=== PATIENT | male | born 1945 | race Caucasian/White ===

== ENCOUNTER 2016-09-15 08:15 | Outpatient (CLI) | payer MEDICARE, BC ==
[~2016-09-15] VITALS: Ht 175.3 cm; Wt 83.6 kg
--- NOTE | ~2016-09-15 | HEMODYNAMI ---
PATIENT:GUSTABO SOMERS MEDICAL RECORD: [id number] : 45 LOCATION:[facility] ADMISSION DATE: 09/15/16 Generatedon:09/15/201611:18 Patient name: GUSTABO SOMERS Patient #: [id number] : 1945 Date of study: 09/15/2016 Page: Of Hemodynamic Procedure Report Patient Data Patient Demographics Procedure consent was obtained First Name: GUSTBAO Gender: Male Last Name: YONIS : 1945 Middle Initial: R Age: 70 year(s) Patient #: [id number] Race: SSN: [id number] Additional ID: [id number] Contact details Address: [address] [place] [address] State: [place] City: [place] Zip code: [address] Past Medical History Allergies Allergen Reaction Date Comments Reported Other allergy 12/16/2015 codeine Other allergy 05/24/2016 codeine Other allergy 05/25/2016 codeine. Other allergy 09/15/2016 codiene,statins Admission Admission Data Admission Date: 09/15/2016 Admission Time: 8:15 Admit Source: Other Insurance Payor: Private health insurance, Medicare Height (in.): 184 BSA: 2.69 (m2) Height (cm.): 467.36 BMI: 1.45 (kg/m2) Weight (lbs.): 70 Weight (kg.): 31.75 Medications upon Admission Medications Dosage Times Administered Last Remarks per Delivery Day Date and Time Clopidogrel Yes 09/15/2016 0:00 Lab Results Lab Result Date: 09/15/2016 Lab Result Time: 0:00 Biochemistry Name Units Result Min Max Creatinine mg/dl 0.6 --(*---)-- 0.6 1.3 CBC Name Units Result Min Max Hemoglobin g/dl 12.6 -*(----)-- 13.5 17.5 Procedure Procedure Types Cath Procedure Diagnostic Procedure LHC LHC w/Coronaries w/Grafts PCI Procedure SVG-BMS/IDALMIS Initial Procedure Description Procedure Date Procedure Date: 09/15/2016 Procedure Start Time: 10:48 Procedure End Time: 11:13 Procedure Staff Name Function Kj Anthony MD Performing Physician Amena Kapadia RT Scrub Diane Scherer RN Nurse Charles Solano RN Title 1 Tutor Modesto Azevedo RT Monitor Procedure Data Cath Procedure Fluoroscopy Diagnostic fluoroscopy Total fluoroscopy Time: 7.4 time: 7.4 min min Diagnostic fluoroscopy Total fluoroscopy dose: 777 dose: 777 mGy mGy Contrast Material Contrast Material Type Amount (ml) Isovue 300 145 Entry Location Entry Primary Successful Side Size Upsize Upsize Entry Closure Succes sful Closure Location (Fr) 1 (Fr) 2 (Fr) Remarks Device Remarks Femoral Right 5 Fr 6 Fr Vascade artery Short Closure System Estimated blood loss: 10 ml Diagnostic catheters Device Type Used For End Catheter Placement Cordis 5Fr Pigtail Procedure Catheter (MP) Cordis 5Fr JL 4.0 Procedure Catheter (MP) Cordis 5Fr 3DRC Catheter Procedure (MP) Cordis Infinity 5Fr JL 5 Procedure catheter Procedure Complications No complications Procedure Medications Medication Administration Route Dosage Oxygen NC 2 l/min Benadryl I.V. 50 mg Lidocaine 2% added to field 20 Heparin Flush Bag added to field 2 bags (1000units/500ml NS) 0.9% NaCl I.V. 100 ml/hr Versed I.V. 1 mg Fentanyl I.V. 50 mcg Versed I.V. 1 mg Fentanyl I.V. 50 mcg Heparin Bolus I.V. 4000 units Hemodynamics Rest BSA: 2.69 (m2) HGB: 12.6 (g/dl) O2 Consumption: Estimated: 328.51 (ml/min) O2 Co nsumption indexed: Estimated:122.12 (ml/min/m) Heart Rate: 87 (bpm) Snapshots Pre Cath Intra NCS Post Cath Vital Signs Time Heart Resp SPO2 etCO2 BD7aqnt NIBP (mmHg) Rhythm Pain Sedation Rate (ipm) (%) (mmHg) (mmHg) Status Level (bpm) 10:30:44 85 17 96 0 0 132/80(104) NSR 0 (11) 10(A) , No pain 10:34:54 80 24 96 0 0 139/81(122) NSR 0 (11) 10(A) , No pain 10:39:08 82 17 99 0 0 116/76(92) NSR 0 (11) 10(A) , No pain 10:43:16 82 24 100 0 0 114/71(86) NSR 0 (11) 10(A) , No pain 10:44:46 81 16 100 0 0 107/68(84) NSR 0 (11) 10(A) , No pain 10:48:50 81 16 99 0 0 107/72(98) NSR 0 (11) 9(A) , No pain 10:52:58 81 18 98 0 0 102/63(85) NSR 0 (11) 9(A) , No pain 10:57:03 80 21 99 0 0 110/61(90) NSR 0 (11) 9(A) , No pain 11:01:11 81 18 100 0 0 104/64(80) NSR 0 (11) 9(A) , No pain 11:05:15 81 17 100 0 0 115/65(98) NSR 0 (11) 9(A) , No pain 11:09:14 77 16 100 0 0 105/65(89) NSR 0 (11) 9(A) , No pain 11:13:18 82 11 100 0 0 114/69(82) NSR 0 (11) 9(A) , No pain Medications Time Medication Route Dose Verified Delivered Reason Notes Effectiveness by by 10:28:14 Oxygen NC 2 Kj Buffie used for l/min Gabrielle Scherer RN procedure 10:28:21 Benadryl I.V. 50 mg Kj Buffie used for Gabrielle Scherer RN procedure 10:33:24 Lidocaine 2% added 20ml Kj Underwood for local to vial Gabrielle Anthony MD anesthetic field 10:33:31 Heparin Flush added 2 Kj Kj used for Bag to bags Gabrielle Anthony MD procedure (1000units/500ml field NS) 10:33:42 0.9% NaCl I.V. 100 Kj Buffie Per physician ml/hr Gabrielle Scherer RN 10:44:07 Versed I.V. 1 mg Kj Rojasie for sedation Gabrielle Scherer RN 10:44:13 Fentanyl I.V. 50 Kj Buffie for sedation mcg Gabrielle Scherer RN 10:47:38 Versed I.V. 1 mg Kj Contreras for sedation Gabrielle Scherer RN 10:47:42 Fentanyl I.V. 50 Kj Contreras for sedation mcg Gabrielle Scherer RN 10:57:08 Heparin Bolus I.V. 4000 Kj Contreras for units Gabrielle Scherer RN anticoagulation Procedure Log Time Note 10:00:16 Charles Solano RN sent for patient. Start room use. 10:20:51 Informed consent obtained and on chart 10:21:10 Admit Source: Other 10::22 Time tracking: Regular hours 10:21:26 Plan of Care:Hemodynamics will remain stable., Cardiac rhythm will remain stable., Comfort level will be maintained., Respiratory function will remain adequate., Patient/ family verbilizes understanding of procedure., Procedure tolerated without complication., Recovers from procedure without complications.. 10:21:34 Patient received from Outpatients to CCL 2 Alert and oriented. Tansferred to table in Supine position. 10:21:35 Warm blankets applied, and meg hugger turned on for patient comfort. 10:21:35 Correct patient and procedure confirmed by team. 10:21:37 Signed procedure consent form obtained from patient. 10:28:14 Oxygen 2 l/min NC was given by Diane Scherer RN; used for procedure; 10:28:21 Benadryl 50 mg I.V. was given by Diane Scherer RN; used for procedure; 10:29:39 ECG and BP/O2 sat monitors applied to patient. 10:29:40 Vital chart was started 10:29:47 Baseline sample Acquired. 10:29:54 Rhythm: sinus rhythm 10:29:56 Full Disclosure recording started 10:31:49 H&P Date Dictated: 09/14/2016 Within 30 days and on chart., H&P Addendum completed by physician on day of procedure. (MUST COMPLETE FOR ALL OUTPATIENTS). 10:31:50 Pre-procedure instructions explained to patient. 10:31:51 Pre-op teaching completed and patient verbalized understanding. 10:31:52 Family in waiting room. 10:31:53 Patient NPO since Midnight. 10:32:15 Patient allergic to Other allergycodiene,statins 10:32:18 Is the patient allergic to Iodine/contrast media? No. 10:32:19 Is patient on blood thinner?Yes 10:32:22 ACC The patient was administered the following blood thiners within the last 24 hours: ACCPlavix 10:32:24 Patient diabetic? No. 10:32:40 Previous problem with sedation/anesthesia? No ? 10:32:41 Snore? Yes 10:32:42 Sleep apnea? No 10:32:43 Deviated septum? No 10:32:44 Opens mouth fully? Yes 10:32:45 Sticks out tongue? Yes 10:32:48 Airway obstruction? No ? 10:32:50 Dentures? Yes in tight 10:33:04 Pre procedure: right dorsailis pedis pulse 1+ Palpable, but thready & weak; easily obliterated 10:33:06 Patient pain scale 0/10 ?. 10:33:10 IV patent on arrival in left antecubital with 0.9% NaCl at [facility]. 10:33:24 Lidocaine 2% 20ml vial added to field was given by Kj Anthony MD; for local anesthetic; 10:33:31 Heparin Flush Bag (1000units/500ml NS) 2 bags added to field was given by Kj Anthony MD; used for procedure; 10:33:36 Lab Result : Hemoglobin 12.6 g/dl 10:33:36 Lab Result : Creatinine 0.6 mg/dl 10:33:40 Lab results completed and on chart. 10:33:42 0.9% NaCl 100 ml/hr I.V. was given by Diane Scherer RN; Per physician; 10:33:43 Right groin area was prepped with chlora-prep and draped in sterile fashion 10:33:44 Alarms reviewed by R. N. 10:33:44 Sharps counted by scrub and verified by R.N. 10:33:47 Use device set Femoral Dx 10:33:48 Tegaderm 4 x 4 opened to sterile field. 10:33:49 Acist Manifold opened to sterile field. 10:33:49 Acist Hand Control opened to sterile field. 10:33:50 Acist Syringe opened to sterile field. 10:33:51 Bag Decanter opened to sterile field. 10:33:51 Cardinal Cath Pack opened to sterile field. 10:33:52 Terumo 5Fr Docena Sheath opened to sterile field. 10:33:52 St Darius 260cm J .035 wire opened to sterile field. 10:33:53 Cordis Infinity 5Fr Multipack catheter opened to sterile field. 10:34:10 Patient Weight : 70 lbs 10:34:17 Patient Height : 184 inches 10:34:17 Insurance Payor : Private health insurance, Medicare 10:37:35 Physician paged 10:37:49 Procedure type changed to Cath procedure, Diagnostic procedure, LHC, LHC w/Coronaries w/Grafts, PCI procedure, SVG-BMS/IDALMIS Initial 10:42:52 Physician arrived 10:42:53 --------ALL STOP TIME OUT------ 10:42:53 Final Timeout: patient, procedure, and site verified with staff and physician. All members of the team are in agreement. 10:42:56 Right groin site verified by team. 10:42:59 Physical assessment completed. ASA score P 2 - A patient with mild systemic disease as per Kj Anthony MD. 10:43:02 Sedation plan: IV Moderate Sedation Versed, Fentanyl 10:44:07 Versed 1 mg I.V. was given by Diane Scherer RN; for sedation; 10:44:13 Fentanyl 50 mcg I.V. was given by Diane Scherer RN; for sedation; 10:46:19 Zero performed for pressure channel P1 10:47:38 Versed 1 mg I.V. was given by Diane Scherer RN; for sedation; 10:47:42 Fentanyl 50 mcg I.V. was given by Diane Scherer RN; for sedation; 10:48:21 Procedure started. 10:48:24 Local anesthetic to right femoral artery with Lidocaine 2% by Kj Anthony MD.INITIAL ACCESS ONLY 10:49:26 A 5 Fr sheath was inserted into the Right Femoral artery 10:50:32 J wire advanced. 10:50:43 A Cordis 5Fr Pigtail Catheter (MP) was advanced over the wire and used for Procedure. 10:50:48 LV gram done using BISHOP 10:50:52 Injector settings: Ml/sec: 10, Volume: 20, 10:51:31 EF : 30 % 10:51:41 Catheter exchanged over wire. 10:51:46 A Cordis 5Fr JL 4.0 Catheter (MP) was advanced over the wire and used for Procedure. 10:52:29 Catheter removed. unable to cannulate vessel. 10:53:00 A Cordis 5Fr 3DRC Catheter (MP) was advanced over the wire and used for Procedure. 10:53:31 LANGFORD to LAD angiography performed. 10:53:48 Terumo 6Fr Docena Sheath opened to sterile field. 10:53:49 Merit BasixCompak Inflation Kit opened to sterile field. 10:53:53 Sharma Whisper J 300cm 0.014 guide wire opened to sterile field. 10:54:30 SVG to Circ angiography performed. 10:54:39 Catheter exchanged over wire. 10:54:46 A Cordis Infinity 5Fr JL 5 catheter was advanced over the wire and used for Procedure. 10:54:56 LCA angiography performed. 10:55:15 Catheter removed. 10:55:24 [place] IVUS Catheter opened to sterile field. 10:56:09 Medtronic Launcher 6Fr AR 2.0 guide catheter opened to sterile field. 10:56:10 Sheath upsized to a 6 Fr Short. 10:56:17 6 Fr AR2 guide catheter was inserted over the wire 10:56:20 whisper wire advanced. 10:56:30 Wire advanced across lesion. 10:56:33 IVUS catheter advanced over wire. 10:57:08 Heparin Bolus 4000 units I.V. was given by Diane Scherer RN; for anticoagulation; 10:58:17 IVUS passed SVG to OM vessle lesion 10:59:03 IVUS catheter removed over wire. 11:02:19 Vesuvius Sci Choice PT Extra Support J 300cm .014 gu opened to sterile field. 11:02:35 Pt extra support wire advanced. 11:06:41 pt extra support removed 11:06:44 Inflation Number: 1 A Medtronic Resolute 4.0 X 30 stent was prepped and advanced across the Aorta Left -> Dist CX. The stent was deployed at 17 JUAN JOSÉ for 0:10 (min:sec). 11:07:48 Stent catheter was removed intact over wire. 11:07:50 Inflation number: 1 A Euphora 2.0 x 15 Balloon was prepped and advanced across the Aorta Left -> 1st Ob Marg1, then inflated to 13 JUAN JOSÉ for 0:15 (min:sec). 11:08:06 Balloon removed over the wire. 11:08:08 Wire removed. 11:08:22 ACC PCI Site: dCirc has 76% stenosis. 11:08:24 ACC Pre-intervention ASIYA Flow is 2. 11:08:27 ACC Post-intervention ASIYA Flow is 3. 11:08:34 ACC PCI Site: OM1 has 95% stenosis. 11:08:35 ACC Pre-intervention ASIYA Flow is 1. 11:08:37 ACC Post-intervention ASIYA Flow is 3. 11:08:45 Guide catheter removed. 11:08:51 Vascade 6/7 Fr Closure Device opened to sterile field. 11:09:22 Sheath removed intact; hemostasis achieved with Vascade Closure System to the Right Femoral artery. 11:09:24 Procedure ended.(Physican Out) 11:10:58 Fluoroscopy time 07.40 minutes. 11:11:02 Fluoroscopy dose: 777 mGy 11:11:02 Flurop Dose total: 777 11:11:11 Contrast amount:Isovue 300 145ml. 11:11:13 Sharps counted by scrub and verified by R.N. 11:11:15 Insertion/operative site no bleeding no hematoma. 11:11:26 Post-op/insertion site Right Femoral artery dressed using a 4 x 4 and Tegaderm. 11:11:30 Post right femoral artery:stable, soft, clean and dry 11:11:32 Post Procedure Pulses reassessed and unchanged 11:11:34 Post-procedure physical assessment completed. ASA score P 2 - A patient with mild systemic disease as per Kj Anthony MD. 11:11:44 Post procedure rhythm: unchanged. 11:11:46 Estimated blood loss: 10 ml 11:11:48 Post procedure instruction explained to patient.Patient verbalizes understanding. 11:11:48 Patient needs reinforcement of post procedure teaching. 11:13:24 Procedure and supply charges have been captured, reviewed, submitted and are correct. 11:13:27 Procedure Complication : No complications 11:13:30 Vital chart was stopped 11:13:31 See physician's report for complete and final results. 11:13:32 Report given to Post Procedure Room. 11:13:35 Patient transfered to Post Procedure Room with Stretcher. 11:13:37 Procedure ended. 11:13:37 Full Disclosure recording stopped 11:13:44 ACC-PCI Only Patient was given prescriptions, or instructed by Kj Anthony MD to start/continue the following medications upon discharge: Plavix 11:17:36 End room use (Document Last) Intervention Summary Intervention Notes Time ActionType Lesion and Equipment Action# Pressure Duration Attributes Used 11:06:44 Place stent Aorta Left Medtronic 1 17 00:10 -> Dist CX Resolute 4.0 X 30 stent 11:07:50 Inflate Aorta Left Euphora 1 13 00:15 balloon -> 1st Ob 2.0 x 15 Marg1 Balloon Device Usage Item Name Manufacture Quantity Catalog Number Hospital Part Current Minim al Lot# / Charge Number Stock Stock Serial# Code Tegaderm 4 3M 1 [id number] 325967 343532 5 x 4 Acist Acist 1 15132 074294 039903 354931 5 Manifold Medical Systems EchoFirst Acist Hand Acist 1 52231 838647 519648 048488 5 Control Medical Systems EchoFirst Acist Acist 1 61339 245716 933963 176850 20 Syringe Medical Systems Inc Bag Microtek 1 2002S 931080 25757 910507 5 Decanter Medical Inc. Cardinal Cardinal 1 [id number] 261379 26997 317209 5 Cath Pack Health Terumo 5Fr Terumo 1 [id number] 300137 740489 638280 [address] D[facility] St Darius 1 056372 992055 619958 828255 30 260cm J .035 wire Cordis Cardinal 1 [id number] 688791 51123 117074 30 Infinity Health 5Fr Multipack catheter Cordis 5Fr Cardinal 1 [id number] 5 Pigtail Health Catheter (MP) Cordis 5Fr Cardinal 1 409680 5 JL 4.0 Health Catheter (MP) Cordis 5Fr Cardinal 1 730794 5 3DRC Health Catheter (MP) Terumo 6Fr Terumo 1 [id number] 528034 830802 270008 40 Docena Sheath Merit Merit 1 [id number] 895954 403470 318400 15 BasixCompak Medical Inflation Kit Sharma Sharma 1 [id number] 140801 121447 007931 5 Whisper J Vascular 300cm 0.014 guide wire Cordis Cardinal 1 [id number] 934372 354598 962773 5 Infinity Health 5Fr JL 5 catheter [place] 1 [id number] 577072 174801 989392 8 [place] IVUS Catheter Medtronic Medtronic 1 [id number] 700782 01708 238585 1 Launcher 6Fr AR 2.0 guide catheter Vesuvius Sci Vesuvius 1 [id number] 815488 103380 721929 5 Choice PT Scientific Extra Support J 300cm .014 gu Medtronic Medtronic 1 [id number] 921887 7571675 0 [id number] Resolute 4.0 X 30 stent Euphora 2.0 Medtronic 1 [id number] 351963 034316 778190 5 [id number] x 15 Balloon Vascade 6/7 Cardiva 1 [id number] 025606 288742 281822 5 Fr Closure Medical, Device Inc. Signature Audit [place] Stage Time Signature Unsigned Intra-Procedure 09/15/2016 Modesto Azevedo 11:17:59 AM RT(R) Signatures Monitor : Modesto Azevedo RT Signature : Date : Time : [place] [id number] KANG, [place] [id number]
[~2016-09-15 08:15] MED LIST: ASPIRIN EC81 M1 PO; ATIVAN1 MG PO; BENICAR HCT 20-1 TA1 PO; BENICAR HCT 40-1 TA1 PO; CO Q-10100 MG PO; COREG 3.1253.125 MG PO; DILAUDID2 MG PO; FEXOFENADINE H180 MG PO; GLYCOLAX527 GM PO; HYDROCODONE-APA1 TAB PO; IBUPROFEN800 MG PO; MS CONTIN30 MG PO; NEURONTIN 300300 MG; NEURONTIN 300300 MG PO; PLAVIX75 MG PO; PRAVACHOL20 MG PO; PROTONIX40 MG PO
[2016-09-15] MEDS ORDERED: [UNRECOGNIZED DRUG - REMARK] (09:09)
[2016-09-15] MEDS ORDERED: ZOFRAN4 MG PO (09:09)
[2016-09-15 09:15] VITALS: BP 124/69; Ht 175.3 cm; Wt 83.6 kg
[2016-09-15] MEDS ORDERED: OPDIVO (09:17)
[2016-09-15] MEDS ORDERED: REGLAN10 MG PO (09:25)
[2016-09-15] MEDS ORDERED: EDARBYCLOR 40-1 EACH PO (09:31)
[2016-09-15 10:11] LABS: CALC OSMOLALITY 277 mosm/kg (275-300); CARBON DIOXIDE 32.2 mmol/L (21.0-32.0); CHLORIDE - SERUM 102 mmol/L (98-107); CREATININE - SERUM 0.6 mg/dL (0.6-1.3); GLUCOSE 105 mg/dL (74-106); POTASSIUM - SERUM 4.6 mmol/L (3.5-5.1); SODIUM 139 mmol/L (136-145); UREA NITROGEN 13 mg/dL (7-18); eGFR NON AFRICAN AMERICAN > 90 mL/min (90-120)
[2016-09-15 10:16] LABS: BASOPHILS 0.3 % (0.0-2.0); EOSINOPHILS 3.9 % (0-7); HEMOGLOBIN 12.6 g/dL (13.5-17.5); IMMATURE GRANULOCYTES 0.3 % (0-5); LYMPHOCYTES 15.2 % (15-50); MCH 33.8 pg (26.0-34.0); MCHC 32.3 g/dL (31.0-37.0); MCV 104.6 fL (80.0-100.0); MEAN PLATELET VOLUME 10.2 fL (7.4-10.4); MONOCYTES 10.7 % (2-11); NEUTROPHILS 69.6 % (40-80); PLATELET COUNT 236 10x3/uL (130-400); RBC 3.73 10x6/uL (4.20-6.10); RDW 14.6 % (11.5-14.5)
--- NOTE | 2016-09-15 11:46 | NUR ---
SR RATE 75 WITH OCCASIONAL PVC'S CHEST PAIN IS DENIED. BP 114/70 O2 AT 2 LITERS WITH SAT OF 100% 6 FR VASCADE R/GROIN CDI NO BLEEDING NO HEMATOMA NOTED INSTRUCTED PATIENT TO KEEP HEAD FLAT ON PILLOW WITH RLE STRAIGHT
--- NOTE | 2016-09-15 12:18 | NUR ---
VSS WITH CHEST PAIN DENIED NSR RATE 69 BP 121/72. 6 FR VASCADE R/GROIN CDI NO BLEEDING NO HEMATOMA NOTED WILL MONITOR
--- NOTE | 2016-09-15 12:35 | NUR ---
NO CHANGE IN ASSESSMENT VSS PATIENT CONTINUES TO SLEEP NO DISTRESS NOTED
--- NOTE | 2016-09-15 13:07 | NUR ---
CHEST PAIN DENIED WITH 6 FR VASCADE R/GROIN CDI NO BLEEDING NO HEMATOMA NOTED. TOLERATING ORAL FLUIDS NAUSEA DENIED VSS NO C/O OF PAIN
--- NOTE | 2016-09-15 14:05 | NUR ---
CHEST PAIN DENIED WITH VSS 6 FR VASCADE R/GROIN CDI NO BLEEDING NO HEMATOMA NOTED WILL MONITOR SANDWICH AND SODA TO BEDSIDE WITH FAMILY TO ASSIST
--- NOTE | 2016-09-15 15:00 | NUR ---
6 FR VASCADE R/GROIN CDI NO BLEEDING NO HEMATOMA NOTED. CHEST PAIN IS DENIED REPOSITIONED TO SITTING WITH HOB UP30 DEGREES NO DISTRESS NOTED
--- NOTE | 2016-09-15 15:17 | NUR ---
PIV REMOVED FROM LEFT AC WITH DRESSING APPLIED. CHEST PAIN IS DENIED 6 FR VASCADE R/GROIN CDI NO BLEEDING NO HEMATOMA NOTED UP TO GET DRESSED FOR DISCHARGE HOME
--- NOTE | 2016-09-15 15:25 | NUR ---
DISCHARGE INSTRUCTIONS GONE OVER WITH PATIENT AND LEFT VIA WC TO [place] FOR FAMILY TO DRIVE HOME CHEST PAIN IS DENIED
--- NOTE | 2016-09-20 14:16 | OP ---
PATIENT NAME: GUSTABO SOMERS MEDICAL RECORD: [id number] :45 LOCATION:[facility] ADMISSION DATE: SURGEON: DUSTIN SLAUGHTER MD DATE OF OPERATION: 09/15/2016 PROCEDURES: 1. PTCA stent, vein graft to the left circumflex. 2. PTCA, left circumflex through the vein graft. 3. Intravascular ultrasound, vein graft to left circumflex. 4. Left heart catheterization. 5. Selective coronary angiography. 6. LANGFORD angiography. 7. Vein graft angiography. INDICATION: Angina and coronary artery disease. PROCEDURE IN DETAIL: After informed consent was obtained and after a detailed explanation of the risks, benefits as well as alternative therapies, the patient elected to proceed with angiogram and angioplasty. The right femoral area was prepped and draped in normal sterile fashion. The right femoral artery was cannulated via modified Seldinger technique with placement of 6-Niuean sheath. All catheters exchanged through this sheath. FINDINGS: The left ventriculogram was performed in standard 30-degree BISHOP view, reveals global hypokinesis throughout all segments. Overall ejection fraction is 30%. SELECTIVE CORONARY ANGIOGRAPHY: 1. Left main has previously placed stent. This is widely patent. This leads into only a non-grafted ramus intermedius that is widely patent as well. 2. Left anterior descending is totally occluded. 3. LANGFORD to the LAD is patent. At the distal anastomosis of the LANGFORD to the LAD, there is a 50% to 70% stenosis, but this does not appear to be critical. 4. The left circumflex is totally occluded. 5. Vein graft to the circumflex is patent; however, intravascular ultrasound reveals that there is 73% stenosis in the mid shaft. As well afterwards, there is 99% stenosis of a branch of the OM. 6. From previous cardiac catheterization, right coronary artery and vein graft to the right coronary artery are totally occluded. PERCUTANEOUS TRANSLUMINAL CORONARY ANGIOPLASTY STENT OF THE LEFT CIRCUMFLEX VEIN GRAFT: The stent used is 4.0 x 30 mm Resolute. The distal circumflex branch was addressed with a 2.0 balloon. Result was 0% residual throughout. OVERALL IMPRESSION: Successful percutaneous transluminal coronary angioplasty stent of the left circumflex vein graft going from 73% initial stenosis to 0% residual. TRANSINT:[id number] Voice Confirmation ID: [id number] DOCUMENT ID: [id number] OPERATIVE REPORT [id number] GUSTABO SOMERS JEFFREY MD at 1416 CC: [id number] DICTATION DATE: 09/15/16 1114 MARKING ROOM SUPERVISOR: 09/15/16 1230 DEP CLI 09/15/16 [place] [id number] [place] [id number]
== END 2016-09-15 15:29 | disposition home or self-care (01) ==
LOC: D.CATH 08:15
PROVIDERS: Internal Medicine Interventional Cardiology
DX: I25.119 Atherosclerotic heart disease of native coronary artery with unspecified angina pectoris (principal); I25.719 Atherosclerosis of autologous vein coronary artery bypass graft(s) with unspecified angina pectoris
CPT/HCPCS: 93459; 92978; C9604

== ENCOUNTER → 2016-11-23 08:32 | Outpatient (CLI) | payer MEDICARE, BC ==
[2016-09-15 09:15] VITALS: BMI 27.2
[~2016-11-23 08:32] MED LIST changes: +EDARBYCLOR 40-1 EACH PO; +OPDIVO; +REGLAN10 MG PO; +ZOFRAN4 MG PO; +[UNRECOGNIZED DRUG - REMARK]
== END | disposition home or self-care (01) ==
LOC: D.MRI 08:32
DX: C34.92 Malignant neoplasm of unspecified part of left bronchus or lung (principal); M54.6 Pain in thoracic spine